=== PATIENT | male | born 1985 | race Caucasian/White ===

== ENCOUNTER 2017-04-03 19:20 | Emergency (ER) | payer SELFPAY ==
[2017-04-03 19:33] VITALS: PULSE 101; RESP 20; TEMP 99.8; O2SAT 100
[2017-04-03 19:35] VITALS: BP 120/82
--- NOTE | 2017-04-03 20:18 | C.PDOC ---
History Of Present Illness 31 y/o male, with PMHx of chronic back pain, and 3 herniated disks, presents to ED for evaluation of non-radiating low back pain. Pt states that his work involves mostly standing. Patient states his pain has worsened in the last few days which prompted ED visit. Notes having similar pain in the past. States pain is worse with movement and with ambulation. Notes being seen by Chiropractor recently, but states his pain worsened after the visit. Otherwise, denies any urinary symptoms, incontinence, extremity weakness/numbness, or fever. Time Seen by Provider: 04/03/17 19:45 Chief Complaint (Nursing): Back Pain History Per: Patient History/Exam Limitations: no limitations Onset/Duration Of Symptoms: Days Current Symptoms Are (Timing): Still Present Quality Of Discomfort: "Pain" Previous Symptoms: Back Pain, Chronic Pain Associated Symptoms: None. denies: Incontinence, New Weakness, New Numbness Exacerbating Factor(s): Movement, Standing Recent travel outside of the [place]: No Additional History Per: Patient Past Medical History Reviewed: Historical Data, Nursing Documentation, Vital Signs Vital Signs: Last Vital Signs Temp 99.8 F H 04/03/17 19:28 Pulse 101 H 04/03/17 19:28 Resp 20 04/03/17 19:28 BP 120/82 04/03/17 19:28 Pulse Ox 100 04/03/17 21:54 - Medical History PMH: Back Problems Surgical History: Appendectomy, Hernia Repair (right inguinal) - [facility] INJECT/INFUSE NEC (07/19/14) Family History: States: Unknown Family Hx - Social History Hx Alcohol Use: No Hx Substance Use: No - Immunization History Hx Influenza Vaccination: Yes Review Of Systems Except As Marked, All Systems Reviewed And Found Negative. Constitutional: Negative for: Fever, Chills Gastrointestinal: Negative for: Nausea, Vomiting, Abdominal Pain Genitourinary: Negative for: Dysuria, Frequency, Incontinence, Hematuria Musculoskeletal: Positive for: Back Pain Neurological: Negative for: Weakness, Numbness Physical Exam - Physical Exam Appears: Non-toxic, No Acute Distress Skin: Normal Color, Warm, Dry Head: Atraumatic, Normacephalic Eye(s): bilateral: Normal Inspection Neck: Normal ROM, Supple Cardiovascular: Rhythm Regular, No Murmur Respiratory: Normal Breath Sounds, No Rales, No Rhonchi, No Wheezing Back: No CVA Tenderness, Vertebral Tenderness, Paraspinal Tenderness (lumbar) Extremity: Normal ROM, No Deformity Neurological/Psych: Oriented x3, Normal Speech, Normal Cognition, Normal Motor, Normal Sensation ED Course And Treatment O2 Sat by Pulse Oximetry: 100 (RA) Pulse Ox Interpretation: Normal Progress Note: Patient refused Percocet. Pt was treated with Lidoderm patch, Toradol, and Valium. On re-eval, pt notes slight improvement of pain. I checked oral temperature myself, found temp to be 97.9. Pt admits to drinking coffee [employer]. Patient will be discharged home, with instructions to f/u with PMD. Disposition - Disposition Referrals: Julia Apodaca DO [[facility]] - Disposition: HOME/ ROUTINE Disposition Time: 21:18 Condition: STABLE Additional Instructions: Follow up with your PMD within 1-2 days. Return to ED if feel worse. 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 - Scribe Statement The provider has reviewed the documentation as recorded by the Rayibe Artur Lopez All medical record entries made by the Rayibkatie were at my direction and personally dictated by me. I have reviewed the chart and agree that the record accurately reflects my personal performance of the history, physical exam, medical decision making, and the department course for this patient. I have also personally directed, reviewed, and agree with the discharge instructions and disposition.
[2017-04-03] MEDS ORDERED: Oxycodone/Acetaminophen 5/325 mg Tab PO STA (20:20)
[2017-04-03] MEDS ORDERED: Lidocaine 5% Patch TD STA (20:20)
[2017-04-03] MEDS ORDERED: Lidocaine 5% Patch TD ONE (20:31)
[2017-04-03] MEDS ORDERED: Oxycodone/Acetaminophen 5/325 mg Tab ONE (20:31)
== END 2017-04-03 21:44 | disposition home or self-care (01) ==
LOC: C.ER 19:20
DX: M54.5 Low back pain (principal)
CPT/HCPCS: 96372; 99283; J1885